=== PATIENT | male | born 1940 | race Hispanic/Latino ===

== ENCOUNTER → 2018-04-09 | Outpatient (CLI) | payer OTHER ==
[~2018-04-09] MED LIST: BAYER PM CAPLE1 EACH PO; CRESTOR5 MG PO; FINASTERIDE5 MG PO; FLOMAX0.4 MG PO; LISINOPRIL2.5 MG PO; OMEPRAZOLE20 MG PO
--- NOTE | 2018-04-09 08:04 | Diagnostic Imaging Report ---
PROCEDURE:US RETROPERITONEAL ( KIDNEY ). COMPARISON:CT abdomen and pelvis with and without contrast 08/10/2010. INDICATIONS:RENAL CYST TECHNIQUE: Everett-scale and color sonographic images of the bilateral kidneys and bladder where obtained in transverse and longitudinal planes. FINDINGS: RIGHT KIDNEY: 9.4 cm in length, cortex 1.7 cm Cysts: None Solid masses: None Stones: None Hydronephrosis: None Echogenicity: Increased renal cortical echogenicity. LEFT KIDNEY: 11.4 cm in length, cortex 2.0 cm Cysts: Adjacent, septated cysts project exophytically from the left lower pole measuring approximately 5.8 x 4.2 x 5.6 cm in aggregate dimension. Internal septations are thin and without perceptible vascularity by color Doppler analysis, similar to that seen on CT abdomen and pelvis from July 2010, though the cyst has slightly increased in size in the interim. There is an additional 2 x 2 by 2.1 cm simple cyst within the interpolar left kidney which has increased in size from 0.9 cm on the comparison examination. Solid masses: None Stones: None Hydronephrosis: None Echogenicity: Increased renal cortical echogenicity. Bladder: Unremarkable. Right and left ureteral jets are identified. Prostate: Estimated volume of 33 cc CONCLUSION: Marginal interval increase in size of minimally complex, exophytic left lower pole renal cyst relative to CT abdomen and pelvis from 08/10/2010, now measuring 5.8 cm in maximum diameter. Followup ultrasound in 12 months may be considered to assess for continued stability. 2 cm simple left parenchymal cyst has marginally increased in size. Increased renal cortical echogenicity compatible with medical renal disease. Dictated by: Scot Zuñiga M.D. on 04/09/2018 at 8:13 Electronically approved by: Scot Zuñiga M.D. on 04/09/2018 at 8:13
== END ==
LOC: US 06:57
PROVIDERS: ATTEND Urology
DX: N28.1 Cyst of kidney, acquired (principal)
CPT/HCPCS: 76770